=== PATIENT | female | born 2000 | race Caucasian/White ===

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

== ENCOUNTER 2023-10-09 19:55 | Emergency (ER) | payer BC, SELFPAY ==
[2023-10-09 20:00] VITALS: BP 133/66; PULSE 72; RESP 20; TEMP 36.9; O2SAT 98
--- NOTE | 2023-10-09 20:01 | ED.URI ---
HPI - URI/Sore Throat General Chief Complaint: Upper Respiratory Infection Stated Complaint: bronchitis symptoms Time Seen by Provider: 10/09/23 19:58 Source: patient, RN notes reviewed and old records reviewed Mode of arrival: ambulatory Limitations: no limitations History of Present Illness HPI Narrative: 23 year old female who presents to [facility] care with complaints of cough and some sinus congestion and feels stuffed up for the past 3 days. Patient reports that she just returned from vacation in [place]. Patient reports that she has used cough drops and Robitussin cough syrup without relief. Patient denies any fevers, shortness of breath or any sore throat. Patient reports that she is concerned for Bronchitis which she has had in past. MD elicited complaint: cough, rhinorrhea and nasal congestion Pertinent past history: other (bronchitis,) Onset (ago): day(s) (3) Severity: moderate Able to tolerate fluids by mouth: Yes Treatments prior to arrival: other (Robittusin and cough drops) Related Data Allergies Allergy/AdvReac Type Severity Reaction Status Date / Time No Known Allergies Allergy Unverified 10/09/23 20:08 Review of Systems Review of Systems: CONSTITUTIONAL: Denies malaise, chills, sweats, or fever. EYES: Denies visual changes, redness, or discharge. ENT: Reports rhinorrhea, congestion, no sinus pain, no otalgia and no sore throat. CARDIOVASCULAR: Denies chest pain, palpitations, or edema. RESPIRATORY: Reports cough.? Denies dyspnea. GASTROINTESTINAL: Denies abdominal pain, nausea, vomiting, diarrhea SKIN: Denies rash or itching. MUSCULOSKELETAL: Denies myalgia. NEUROLOGIC: Denies headache. All systems reviewed & are unremarkable except as noted in HPI and below PMFSH Past Medical History Medical History (Updated 10/10/23 @ 21:17 by Rachael Rodriguez NP) Broken collarbone Bronchitis Surgical History Surgical History (Updated 10/10/23 @ 21:10 by Rachael Rodriguez NP) History of tonsillectomy Social History Social History (Updated 10/10/23 @ 21:10 by Rachael Rodriguez NP) Smoking status: Never smoker Alcohol intake: current Alcohol use details: social Substance use type: does not use Living arrangements: with family Occupation/Education: student Gender identity (if verbalized by the patient): Female Comments At time of signature, agree with nursing past medical, surgical, social and family history. There is no relevant family history pertinent to the presenting complaint Exam Narrative: GENERAL: Well-appearing, well-nourished, and in no acute distress. HEAD: Normocephalic EYES: PERRLA, conjunctivae clear ENT: Nares clear, turbinates edematous and erythematous, clear discharge. Mucous membranes moist. TM pearly castanon with dull light reflex bilaterally; no tragal tenderness. Oropharynx erythematous without lesions. Tonsils not present and throat without exudate, no drooling, no hoarseness, no trismus, uvula midline.post nasal drainage NECK: Supple. No lymphadenopathy CHEST: Clear to auscultation, breath sounds equal. No wheezing, rhonchi, rales, or stridor. No respiratory distress, speaks in full sentences.cough SAO2 98% on room air HEART: Regular rate and rhythm. No murmur heard. SKIN: Warm, dry, no rash. NEURO: Alert and oriented x3. PSYCH: Normal mood and affect Course Course Emergency Course: Patient is aware of diagnosis, understands and agrees to treatment plan.? Anticipatory guidance given.? Patient agrees to follow-up as directed and is aware of reasons to seek care at the emergency department. Portions of this record may have been created with voice recognition software Level of Care: Express Care Visit Vital Signs Vital signs: Vital Signs Temperature 36.9 C 10/09/23 20:00 Pulse Rate 72 10/09/23 20:00 Respiratory Rate 20 10/09/23 20:00 Blood Pressure 133/66 10/09/23 20:00 Pulse Oximetry 98 10/09/23 20:00
== END 2023-10-09 20:20 | disposition home or self-care (01) ==
PROVIDERS: Emergency Provider Registered Nurse; PCP Internal Medicine
DX: J06.9 Acute upper respiratory infection, unspecified (principal); R05.1 Acute cough
CPT/HCPCS: 99213; G0463

== ENCOUNTER 2025-01-13 12:12 | Emergency (ER) | payer BC, SELFPAY ==
--- OUTSIDE RECORDS SUMMARY | 2025-01-13 12:15 | XMS_ITS | Referral Summary ---
Author Organization [facility] [address] Address [address] [place] [address] Phone Care Team Providers Care Land Management Supervisor Name Role Phone Jayesh Cabrera MD Primary Care Provider + Allergies No known active allergies Medications AVIANE 0.1-20 mg-mcg per tablet TK 1 T PO D 2 04/18/2017 Active fluticasone propionate (FLOVENT HFA) 110 mcg/actuation inhaler Inhale 1 puff 2 (two) times a day Rinse mouth with water after use. Do not swallow. 1 Inhaler 11/28/2018 Active albuterol HFA (PROVENTIL HFA,VENTOLIN HFA,PROAIR HFA) 90 mcg/actuation inhaler Inhale 2 puffs every 4-6 hours as needed 1 Inhaler 6 06/03/2020 Active methocarbamoL (ROBAXIN) 500 mg tablet Take 1 tablet (500 mg total) by mouth 2 (two) times a day 20 tablet 11/17/2023 Active lidocaine (LIDODERM) 5 % Place 1 patch on the skin daily for 14 days Remove & discard patch within 12 hours or as directed by . 14 patch 11/17/2023 Active Active Problems Problem Noted Date Diagnosed Date Acute otitis media 08/14/2019 Overview (08/14/2019): 1-14-20 ROM amox Asthma 07/05/2017 Overview (08/14/2019): Has been on Flovent 110 and has been on Singulair. Triggers are viral URIs and seasons. Now just rescue inhaler prn. 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 06/14/2017 Oral contraceptive use 06/14/2017 Overview (07/05/2017): for periods Immunizations Immunization Administration Dates Next Due DTaP, Unspecified 06/02/2006, 4,2002,10/01,2002 HPV, Unspecified 01/18/2017 HPV9 08/30/2018,04/24/2018 Hep A, Pediatric 04/24/2018 Hep A, Unspecified 01/18/2017 Hep B, Unspecified 2002,2002, 002 HiB 09/11/2003, 3,2002,05/31 Hib (HbOC) 2002 IPV 06/02/2006, 6,2002,07/31 Influenza, Quadrivalent, Spl it, Preservative Free, Intramuscular 05/23/2019,06/20/2018 Influenza, Trivalent, Preser vative Free, Intramuscular 07/13/2017 Influenza, Unspecified 06/13/2016,2014,06/08/2014,05/17,06/02/2006 MMR 07/05/2017,09/11/2003 Meningococcal ACWY, Unspecified 01/18/2017 Meningococcal MCV4P (Menactra) 08/30/2018 Pneumococcal Conjugate, Unspecified 06/03/2003,0 03/06/2003 Tdap 03/14/2014 Varicella 05/09/2014,06/03/2003 Social History Tobacco Use Types Packs/Day Years Used Date Smoking Tobacco: Never Assessed Personal Safety Answer Date Recorded Have you ever been in or are you currently in a harmful physical or emotional relationship or is someone making you feel afraid or unsafe? Denies 09/28/2024 Comments Unknown Sex and Gender Information Value Date Recorded Sex Assigned at Not on file Legal Sex Female 9:00 PM [employer] Gender Identity Not on file Sexual Orientation Not on file Last Filed Vital Signs Vital Sign Reading Time Taken Comments Blood Pressure 109/73 09/28/2024 11:30 AM HYDRAULIC MINER Pulse 51 09/28/2024 11:30 AM HYDRAULIC MINER Temperature 36.9 C (98.4 F) 09/28/2024 6:04 AM HYDRAULIC MINER Respiratory Rate 16 09/28/2024 5:55 AM HYDRAULIC MINER Oxygen Saturation 94% 09/28/2024 11: 30 AM HYDRAULIC MINER Inhaled Oxygen Concentration - - Weight 70.3 kg (154 lb 15.7 oz) 09/28/2024 5:55 AM HYDRAULIC MINER Height 162.6 cm (5' 4) 09/28/2024 5:38 AM HYDRAULIC MINER Body Mass Index 26.6 09/28/2024 5:38 AM HYDRAULIC MINER Plan of Treatment Not on file Insurance [place] [facility] CHOICE PRF PPO [place] Care Teams Land Management Supervisor Relationship Specialty Start Date End Date Jayesh Cabrera MD PCP - General Internal Medicine 11/17/23
--- OUTSIDE RECORDS SUMMARY | 2025-01-13 12:15 | XMS_ITS | Clinical Summary ---
Author Organization [facility] Address [address] [place] [address] Care Team Providers Care Flat Drier Name Role Phone Jayesh Cabrera MD Primary Care Provider [phone] Allergies No known active allergies Medications Symbicort 160-4.5 mcg/actuation HFA Aerosol Inhaler INHALE 2 PUFFS BY MOUTH TWICE DAILY. RINSE MOUTH AFTER USE 12/19/19 22 Active albuterol sulfate 90 mcg/Actuation inhaler INHALE 2 PUFFS BY MOUTH EVERY 4 TO 6 HOURS NEEDED 8.5 Gram 04/06/20 22 Active levonorgestreL (Kyleena) 17.5 mcg/24 hrs (5 yrs) 19.5 mg IUD Kyleena 19.5 MG Intrauterine Intrauterine device QTY: 0 Days: 0 Refills: 0 Written: 09/23/22 Patient Instructions: 09/23/19 23 Active ibuprofen (MOTRIN) 600 mg tablet Take 600 mg by mouth every 6 hours as needed for Pain, Mild. Active levothyroxine 75 mcg tablet TAKE 1 TABLET(75 MCG) BY MOUTH DAILY IN THE MORNING 90 Tablet 1 07/05/20 24 Active tirzepatide, weight loss, (Zepbound) 10 mg/0.5 mL Pen Injector Inject by subcutaneous injection. Active HYDROcodone-aceta minophen (NORCO) 5-325 mg tabletIndications :Calculus of gallbladder without cholecystitis without obstruction Take 1 Tablet by mouth every 6 hours as needed for Pain. Max Daily Amount: 4 Tablets 10 Tablet 10/27/19 25 Active HYDROcodone-aceta minophen (NORCO) 5-325 mg tabletIndications :Gallstones Take 1 Tablet by mouth every 4 hours as needed for Pain. Max Daily Amount: 6 Tablets 8 Tablet 11/10/2024 1:18 PM CDT 11/11/19 25 Active polyethylene glycol (MIRALAX) 17 gram Powder in Packet Take by mouth daily. Active Active Problems Patient Care Coordination No te Formatting of this note migh t be different from the original. Prev 09/02/23 Problem Noted Date Diagnosed Date Other asthma 12/29/2021 Allergic sinusitis 02/04/2021 Encounters Date Type Department Care Team Description 12/25/2024 External Device Data [facility] ABSTRACTION Provider, Abstract 11/27/2024 External Device Data [facility] ABSTRACTION Provider, Abstract 11/27/2024 External Device Data [facility]STRACTION Provider, Abstract 11/27/2024 External Device Data [facility]STRACTION Provider, Abstract 11/20/2024 11:45 AM CDT Office Visit [facility] [place] [id number] [facility] [address] [place] [id number] Wallace Sellers MD Gallstones (Primary Dx) 11/10/2024 9:56 AM CDT Anesthesia Event [facility] Operating Room [address] [place] [address] Jaren Quintanilla MD Bai, Kevin, MD 11/10/2024 9:29 AM CDT - 11/10/2024 10:42 AM CDT Surgery [facility] Operating Room [address] [place] [address] Wallace Sellers MD CHOLECYSTECTOMY LAPAROSCOPIC 11/10/2024 7:18 AM CDT - 11/10/2024 1:02 PM CDT Hospital Encounter [facility] [address] [place] [address] Wallace Sellers MD Gallstones Discharge Disposition: Home or Self Care 11/05/2024 Telephone [facility] [place] [id number] [facility] [address] [place] [address] Wallace Sellers MD Surgery 11/05/2024 Telephone [facility] [place] [id number] [place] [address] Wallace Sellers MD Surgery 11/02/2024 Telephone [facility] [place] [id number] [facility] [address] [place] [address] Wallace Sellers MD Surgery 10/30/2024 External Device Data [facility] ABSTRACTION Provider, Abstract 10/30/2024 External Device Data [facility]STRA[facility] Provider, Abstract 10/30/2024 External Device Data [facility] [place] Provider, Abstract 10/26/2024 2:42 AM CDT - 10/26/2024 5:33 AM CDT Emergency [facility] Emergency Department [address] [place] [phone] Carlos Schroeder DO Calculus of gallbladder without cholecystitis without obstruction (Primary Dx) Discharge Disposition: Home or Self Care 10/26/2024 Abstract [facility] Primary Care [facility] [address] [place] [phone] Jayesh Cabrera MD 10/26/2024 Travel from Last 3 Months Immunizations Immunization Administration Dates Next Due (ADACEL/BOOSTRIX)(10 YR UP) TDAP VACCINE, 0.5ML, IM 03/02/2024,03/14/2014 (GARDASIL 9)(9-45 YRS) HUMAN PAPILLOMAVIRUS VACCINE, TYPES 6, 11, 16, 18, 31, 33, 45, 52, 58, NONAVALENT (9VHPV), 2 OR 3 DOSE, IM 08/30/2018,04/24/2018 (GARDASIL)(9-45 YRS) HUMAN PAPILLOMAVIRUS VACCINE, TYPES 6, 11, 16, 18, QUADRIVALENT (4VHPV), 3 DOSE, IM 01/18/2017 (HAVRIX/VAQTA)(12 MO-18 YRS) HEPATITIS A VACCINE 0.5 ML PED/ADOL 2 DOSE, IM 04/24/2018 (INFANRIX)(6 WKS-6 YRS) DIPT HERIA, TETANUS TOXOIDS, AND ACCELLULAR PERTUSSIS VACCINE (DTAP), 0.5 ML IM 06/02/2006,12/09/2003,2002,10/01,2002 (IPOL)(6 WKS AND UP) POLIOVI TIFFANIE VACCINE, INACTIVATED (IPV), 3 DOSE, SUBCUT OR IM 06/02/2006,12/08/2005,2002,07/31 (M-M-R II/PRIORIX)(12 MO UP) MEASLES, MUMPS AND RUBELLA VIRUS VACCINE, 0.5 ML IM/SUBCUT 07/05/2017,09/11/2003 (PREVNAR 20)(6 WKS UP) PNEUM OCOCCAL CONJUGATE VACCINE 20-VALENT (PCV20), POLYSACCHARIDE [id number] CONJUGATE, ADJUVANT 0.5 ML (PF) IM 12/28/2022 (VARIVAX)(12 MOS UP)VARICELL A VIRUS VACCINE (PF) 0.5 ML, SUB CUT 05/09/2014,06/03/2003 HIB, Unspecified Formulation 09/11/2003, 2002,2002,05/31 HPV, Unspecified Formulation 01/18/2017 Hemophilus influenza b vacci ne (Hib), HbOC conjugate (4 dose schedule), for intramuscular use 2002 Hepatitis A Vaccine 01/18/2017 Hepatitis A Vaccine, Unspeci fied Formulation 01/18/2017 Hepatitis B Vaccine 2002,2002,2001 Hepatitis B Vaccine, Unspeci fied Formulation 2002,2002 INFLUENZA VACCINE QUADRIVALE NT 6 MOS UP PF IM 05/23/2019,06/20/2018 Influenza Seasonal Unspecifi ed Formulation IM 06/13/2016,06/10/2015,06/08/2014,05/17,06/02/2006 Influenza Vaccine Tri Split 4+ Pf Im 07/13/2017 Influenza, Unspecified Formulation 06/13/2016,,06/08/2014 Meningococcal ACWY Vaccine, Unspecified Formulation 01/18/2017 Meningococcal Polysaccharide Vaccine SQ 08/30/2018 Pneumococcal conjugate, unsp ecified formulation 06/03/2003,03/06/2003 Family History Relation Name Status Comments Brother Alive Father Alive Maternal Grandfather Alive Maternal Grandmother Alive Mother Alive Paternal Grandfather Alive Paternal Grandmother Alive Sister Alive Social History Tobacco Use Types Packs/Day Years Used Date Smoking Tobacco: Never Passive Smoke Exposure: Never Smokeless Tobacco: Never Tobacco Cessation:Counseling Given: No Alcohol Use Standard Drinks/Week Comments Yes 1 (1 standard drink = 0.6 oz pur e alcohol) Feeling Safe Answer Date Recorded Are you in a relationship wi th someone who hurts you emotionally and/or physically? No 11/10/2024 Food Insecurity Answer Date Recorded Patient needs follow up regardin 11/27/2024 Transportation Needs Answer Date Record ed Patient needs follow up regardin 11/27/2024 Housing Stability Answer Date Recorded Social/Environmental Concerns No concerns Utility Needs Answer Date Recorded Patient needs follow up regardin 11/27/2024 Comments No Sex and Gender Information Value Date Recorded Sex Assigned at Not on file Legal Sex Female 2:36 PM CDT Gender Identity Not on file Sexual Orientation Not on file Last Filed Vital Signs Vital Sign Reading Time Taken Comments Blood Pressure 106/57 11/10/2024 12:43 PM CDT Pulse 52 11/10/2024 12:43 PM CDT Temperature 36.7 C (98 F) 11/10/2024 12:43 PM CDT Respiratory Rate 18 11/10/2024 12:43 PM CDT Oxygen Saturation 98% 11/10/2024 12:43 PM CDT Inhaled Oxygen Concentration - - Weight 68 kg (150 lb) 11/10/2024 7:34 AM CDT Height 157.5 cm (5' 2) 11/10/2024 7:34 AM CDT Body Mass Index 27.44 11/10/2024 7:34 AM CDT Plan of Treatment Upcoming Encounters Date Type Department Care Team (Late st Contact Info) Description 04/18/2025 10:20 AM CDT Office Visit [facility] [id number] [place] [address] Jayesh Cabrera MD [address] [place] [address] [address] [place] [address] Health Maintenance Due Date Last Done Comments CHLAMYDIA SCREENING (ANNUAL) 06-24 YEARS 2013 HPV/Cotest (21-29) 2023 INFLUENZA VACCINE (#1) 2024 9, 06/20/2018, 07/13/2017, Additional history exists Preventative Visit- Commercial 08/01/2024 0 09/02/2023, 12/28/2022, 12/29/2021, Additional history exists CERVICAL CANCER SCREENING 07/08/2025 PAP SMEAR 07/08/2025 07/08/2022 (Prev iously completed) DTAP/TDAP/TD VACCINES (8 - T d or Tdap) 03/02/2034 03/02/2024, 03/14/2014, 06/02/2006, Additional history exists HEPATITIS B VACCINES Completed 2002, 2002, 2002, Additional history exists HPV VACCINES Completed 08/30/2018, 04/02, 01/18/2017, Additional history exists Medical Devices Implanted Type Area Parliamentary Counsel Device Identifier Shelf Expiration Date Model / Serial / Lot Electric Melt Operator Ligaclip Endo Rotate Multi Clip 10mm [id number] - [id number] Implanted:Qty : 1 on 11/10/2024 by Wallace Sellers MD at [facility] Clip N/A: Abdomen [employer] [id number] 08/31/2029 ER320 / / [id number] Procedures Procedure Name Priority Date/Time Associated Diagnosis Comments PATHOLOGY Pathology 11/10/2024 10:29 AM CDT Gallstones [place] ANES INSERT ENDOTRACHEAL AIRWAY Routine 11/10/2024 10:15 AM CDT [place] LAPAROSCOPY SURG CHOLECYSTECTOMY 11/10/2024 9:29 AM CDT Gallstones POC , URINE Routine 11/10/2024 7:[address] ABDOMEN PELVIS W CONTRAST Stat 10/26/2024 4:10 AM CDT POC CREATININE Stat 10/26/2024 3:25 AM CDT LIPASE Stat 10/26/2024 3:14 AM CDT COMPREHENSIVE METABOLIC PANEL Stat 10/26/2024 3:14 AM CDT CBC WITH DIFFERENTIAL Stat 10/26/2024 3:14 AM CDT POC , URINE Stat 10/26/2024 2:55 AM CDT URINALYSIS W/REFLEX MICROSCOPIC Stat 10/26/2024 2:53 AM CDT from Last 3 Months Results * PATHOLOGY (11/10/2024 10:29 AM CDT) CASE REPORT Surgical Pathology Report Case: [id number] Authorizing Provider: Wallace Sellers MD Collected: 11/10/2024 10:29 AM Ordering Location: [facility] Received: 11/12/2024 07:05 AM Operating Room Pathologist: Gregorio Mendoza MD Specimen: Gallbladder, GALLBLADDER 4:52 PM CDT [facility] FINAL DIAGNOSIS Gallbladder, laparoscopic cholecystectomy: - Cholelithiasis. - Gallbladder with chronic inflammation. - Cholesterolosis. 4:52 PM CDT [facility] at 1652 CDT GROSS DESCRIPTION Received in a single container labeled Estephania Castano and gallbladder, is a 5 x 2.5 x 1.8 cm gallbladder with a clamped, patent cystic duct has a diameter of 0.1 cm and is inked blue. The serosal surface is masterson-pink and smooth. The lumen contains a small amount of masterson, translucent, thick bile and multiple ovoid, yellow-orange, nodular stones that are 0.1 to 0.4 cm in greatest dimension. The mucosa is pale masterson-pink, velvety, and covered with yellow flecks. Sectioning reveals a wall thickness of 0.1 to 0.2 cm and has edema. Hand Bander sections are submitted in cassette A1, including the en face cystic duct margin. [facility] 4:52 PM CDT [facility] MICROSCOPIC DESCRIPTION The slides are labeled [id number] and Estephania Castano. Microscopic findings substantiate the above diagnosis. 5 4:52 PM CDT [facility] OPERATIVE PROCEDURE 1: CHOLECYSTECTOMY LAPAROSCOPIC 5 4:52 PM CDT [facility] CLINICAL INFORMATION Gallstones [K80.20] 5 4:52 PM T [facility] COMMENT Special stain, immunohistochemical, and/or in situ hybridization results are interpreted with controls that demonstrate appropriate staining reactions. Note on use of immunohistochemistry reagents and in situ hybridization probes: These tests were developed and their performance characteristics determined by [facility] Department of Laboratory Medicine. It has not been cleared or approved by the U.S. Food and Drug Administration. The FDA has determined that such clearance or approval is not necessary. The test is used for clinical purposes. It should not be regarded as investigational or for research. This laboratory is certified to perform high complexity testing. Frozen section/operating room consultation, gross examination and dissection, and case sign out may have been performed in part or completely in the following laboratories: [facility], [place] #[id number] [address] [place] [address] [facility], [place] #[id number] [address] [place] [address] [facility]/[place], [place] #[id number] [address] [place] [address] This report was created with the Mi[employer] voice-activated dictation system. Inherent to this system is the possibility of syntax, grammar, punctuation and other errors that could impact the interpretation of the report. If there are interpretative questions about aspects of this report, please contact the performing pathologist. 5 4:52 PM T [facility] Tissue ENTIRE GALLBLADDER / Unknown Collection / Unknown 11/10/2024 10:29 AM CDT 11/12/2024 7:05 AM CDT Wallace Sellers MD PATHOLOGY/CYTOLOGY ORDERABLES Fi nal Result [facility] CLIA# [id number] [address] [place] [place] [address] * [place] ANES INSERT ENDOTRACHEAL AIRWAY (11/10/2024 10:15 AM CDT) Narrative Rafi Bauman AA-C - 11/10/2024 10:15 AM CDT Rafi Bauman AA-C 11/10/2024 10:16 AM Airway Date/Time: 11/10/2024 10:15 AM Location: OR Plan: routine intubation Patient Identity Confirmed by: Verbally with patient and armband Staffing Performed: [employer] SALESPERSON/CAA Authorized by: Jaren Quintanilla MD Performed by: Rafi Bauman AA-C Indications and Patient Condition: Indications for Airway Management: Anesthesia Sedation Level: general anesthesia Preoxygenated: yes Patient Position: Sniffing Mask Difficulty Assessment: 0 - not attempted Plan to extubate at end of case: Yes Final Airway Details: Final Airway Type: Endotracheal airway ETT Cuffed: Yes Cuff Volume (mL): 5 Technique Used for Successful ETT Placement: Direct laryngoscopy Blade Type: straight blade Blade Size: 2 Insertion Site: Oral ETT Size (mm): 7.0 Measured from: Teeth ETT to Teeth (cm): 21 Tube secured with: Tape Placement Verified by: auscultation, end tidal CO2 and chest rise Cormack-Lehane Classification: Grade I - full view of glottis Number of Attempts at Approach: 1 Additional Procedure Information: atraumatic Jaren Quintanilla MD PROCEDURE/MINOR SURGICAL ORDER BONNY Final Result * POC , URINE (11/10/2024 7:48 AM CDT) Only the most recent of2 resultswithin the time period is included. HCG QUAL URINE Negative Negative 11/10/2024 7:48 AM CDT [facility] Urine 11/10/2024 7:48 AM CDT 11/10/2024 7:54 AM CDT Narrative [facility] - 11/10/2024 7:48 AM CDT Positive : Result is greater than or equal to 25 mIU/mL Negative: Result is less than 25 mIU/mL Invalid: Result is borderline or indeterminate,send to lab for serum test methodology. Wallace Sellers MD POINT OF CARE TESTING Final Resu lt [facility]# [id number] [address] [facility] [address] * CT ABDOMEN PELVIS W CONTRAST (10/26/2024 4:10 AM CDT) Anatomical Region Laterality Modality Abdomen Computed Tomogra phy 10/26/2024 4:10 AM CDT Impressions 10/26/2024 4:19 AM CDT IMPRESSION: 1. Tiny gallstones. Trace intrahepatic biliary dilatation but no significant gallbladder distention. 2. IUD is present. The right limb of the device appears deeper in the myometrium in anticipated. Malposition is not entirely excludable. DICTATION LOCATION: Location 4 Narrative 10/26/2024 4:[address] ABDOMEN PELVIS W CONTRAST EXAM DATE: 10/26/2024 4:10 AM TECHNIQUE: Axial computed tomography of abdomen and pelvis with 100 cc Isovue-300 IV contrast . Coronal and sagittal reformats were obtained. The examination was performed with the adjustment of mA according to the patient size and/or use of iterative reconstruction technique. INDICATION: Abdominal pain, acute, nonlocalized. History of gallbladder disease. Right upper quadrant pain COMPARISON: None FINDINGS: Lung bases are clear No free air. No ascites. No abnormal bowel distention or evidence of bowel obstruction. No focal bowel wall edema. Appendix is normal. Spleen, adrenal glands, pancreas within normal limits. Gallbladder is not significantly dilated and shows no significant wall edema. There are tiny gallstones. There may be trace intrahepatic biliary dilatation. Nephrograms are normal and symmetric. No hydronephrosis. No obstructing ureterolithiasis. No significant bladder wall thickening. No pathologic adenopathy. Abdominal aorta is nonaneurysmal. IUD is present. The right limb of the device appears deeper in the myometrium than expected. No concerning adnexal mass. No suspicious osseous lesion. Umbilical piercing is present Procedure Note Yoana Hernandez MD - 10/26/2024 CT ABDOMEN PELVIS W CONTRAST EXAM DATE: 10/26/2024 4:10 AM TECHNIQUE: Axial computed tomography of abdomen and pelvis with 100 cc Isovue-300 IV contrast . Coronal and sagittal reformats were obtained. The examination was performed with the adjustment of mA according to the patient size and/or use of iterative reconstruction technique. INDICATION: Abdominal pain, acute, nonlocalized. History of gallbladder disease. Right upper quadrant pain COMPARISON: None FINDINGS: Lung bases are clear No free air. No ascites. No abnormal bowel distention or evidence of bowel obstruction. No focal bowel wall edema. Appendix is normal. Spleen, adrenal glands, pancreas within normal limits. Gallbladder is not significantly dilated and shows no significant wall edema. There are tiny gallstones. There may be trace intrahepatic biliary dilatation. Nephrograms are normal and symmetric. No hydronephrosis. No obstructing ureterolithiasis. No significant bladder wall thickening. No pathologic adenopathy. Abdominal aorta is nonaneurysmal. IUD is present. The right limb of the device appears deeper in the myometrium than expected. No concerning adnexal mass. No suspicious osseous lesion. Umbilical piercing is present IMPRESSION: 1. Tiny gallstones. Trace intrahepatic biliary dilatation but no significant gallbladder distention. 2. IUD is present. The right limb of the device appears deeper in the myometrium in anticipated. Malposition is not entirely excludable. DICTATION LOCATION: Location [address] ORDERABLES Final Result * POC CREATININE (10/26/2024 3:25 AM CDT) CREATININE POC 0.70 0.50 - 1.00 mg/dL 10/26/2024 3:25 AM CDT [facility] GFR POC >60 >=60 mL/min/1.7 3 sq meter 10/26/2024 3:25 AM CDT [facility] Comment:eGFR calculated with 2020 CKD-EPI equation. Vegetarian diet, extremely high or low muscle mass, and may affect results. Cystatin C with Glomerular Filtration Rate is a suitable alternative for these patients. Blood, whole 10/26/2024 3:25 AM CDT 10/26/2024 3:29 AM CDT Carlos Schroeder DO POINT OF CARE TESTING Final Re sult [facility] - [facility] CLIA# [id number] [address] [place] [address] * (ABNORMAL) CBC WITH DIFFERENTIAL (10/26/2024 3:14 AM CDT) [facility] WBC 13.0(H) 4.0 - 9.8 K/uL 10/26/2024 3:25 AM CDT [facility] RBC 3.98 3.90 - 4.90 M/uL 10/26/2024 3:25 AM CDT [facility] HEMOGLOBIN 13.1 11.8 - 14.8 g/dL 10/26/2024 3:25 AM CDT [facility] HEMATOCRIT 37.9 35.5 - 44.0 % 10/26/2024 3:25 AM CDT [facility] MCV 95.2 82.0 - 99.0 fL 10/26/2024 3:25 AM CDT [facility] MCH 32.9(H) 27.2 - 32.6 pg 10/26/2024 3:25 AM CDT [facility] MCHC 34.6 31.5 - 35.5 g/dL 10/26/2024 3:25 AM CDT [facility] RDW 13.0 11.5 - 14.5 % 10/26/2024 3:25 AM CDT [facility] RDW-STDEV 44.8 37.1 - 48.7 fL 10/26/2024 3:25 AM CDT [facility] - . [facility] PLATELETS 337 140 - 350 K/uL 10/26/2024 3:25 AM CDT [facility] - . [facility] MPV 10.1 9.3 - 12.4 fL 10/26/2024 3:25 AM CDT [facility] NEUTROPHILS 68 % 10/26/2024 3:25 AM CDT [facility] - . [facility] LYMPHOCYTES 23 % 10/26/2024 3:25 AM CDT [facility] - [facility] MONOCYTES 6 % 10/26/2024 3:25 AM CDT [facility] - [facility] EOSINOPHILS 3 % 10/26/2024 3:25 AM CDT [facility] - . [facility] BASOPHILS 1 % 10/26/2024 3:25 AM CDT [facility] - . [facility] IMMATURE GRANULOCYTES 0 % 10/26/2024 3:25 AM CDT [facility] - . [facility] NEUTROPHIL ABSOLUTE 8.80(H) 1.90 - 7.00 K/uL 10/26/2024 3:25 AM CDT [facility] - . [facility] LYMPHOCYTE ABSOLUTE 3.01 0.70 - 4.50 K/uL 10/26/2024 3:25 AM CDT [facility] - . [facility] MONOCYTE ABSOLUTE 0.79 0.10 - 1.30 K/uL 10/26/2024 3:25 AM CDT [facility] - . [facility] EOSINOPHIL ABSOLUTE 0.33 0.00 - 0.70 K/uL 10/26/2024 3:25 AM CDT [facility] - [facility] BASOPHILS ABSOLUTE 0.07 0.00 - 0.20 K/uL 10/26/2024 3:25 AM CDT [facility] - . [facility] IMMATURE GRANULOCYTES ABSOLUTE 0.04(H) 0.00 - 0.03 K/uL 10/26/2024 3:25 AM CDT [facility] - [facility] Blood Venipuncture / Unknown 10/26/2024 3:14 AM CDT 10/26/2024 3:18 AM CDT us Carlos Schroeder DO HEMATOLOGY ORDERABLES Final Re sult [facility] CLIA# [id number] [address] [address] * LIPASE (10/26/2024 3:14 AM CDT) LIPASE 42 13 - 60 U/L 10/26/2024 3:58 AM CDT [facility] Blood Venipuncture / Unknown 10/26/2024 3:14 AM CDT 10/26/2024 3:18 AM CDT us Carlos Schroeder DO CHEMISTRY ORDERABLES Final Res ult [facility] CLIA# [id number] [address] [place] [address] * (ABNORMAL) COMPREHENSIVE METABOLIC PANEL (10/26/2024 3:14 AM CDT) Pathologist [facility] SODIUM 140 136 - 145 mmol/L 10/26/2024 3:59 AM T [facility] POTASSIUM 4.4 3.5 - 5.0 mmol/L 10/26/2024 3:59 AM T [facility] Comment:Moderate hemolysis p resent. Can cause significant falsely elevated result. Redraw if indicated. CHLORIDE 103 98 - 107 mmol/L 10/26/2024 3:59 AM CDT [facility]. [facility] CO2 25 22 - 29 mmol/L 10/26/2024 3:59 AM T [facility]. [facility] CALCIUM 9.7 8.6 - 10.2 mg/dL 10/26/2024 3:59 AM CDT [facility] - . [facility] BUN 9 6 - 20 mg/dL 10/26/2024 3:59 AM T [facility] - . [facility] CREATININE 0.64 0.51 - 0.95 mg/dL 10/26/2024 3:59 AM CDT [facility] - . [facility] GLUCOSE 92 74 - 99 mg/dL 10/26/2024 3:59 AM T [facility] - . [facility] TOTAL PROTEIN 7.6 6.7 - 8.6 g/dL 10/26/2024 3:59 AM T [facility] - . [facility] ALBUMIN 4.5 3.5 - 5.2 g/dL 10/26/2024 3:59 AM CDT [facility] BILIRUBIN TOTAL 0.5 0.3 - 1.2 mg/dL 10/26/2024 3:59 AM T [facility] ALKALINE PHOSPHATASE 96 35 - 104 U/L 10/26/2024 3:59 AM CDT [facility] AST 10/26/2024 3:59 AM T [facility] Comment:Test cannot be perfo rmed. Sample hemolysis interference above limits. Redraw if indicated. ALT 77(H) <34 U/L 10/26/2024 3:59 AM T [facility] Comment:Hemolysis present. R esult may be falsely elevated. GFR >60 >=60 mL/min/1.7 3 sq meter 10/26/2024 3:59 AM T [facility] Comment:eGFR calculated with 2020 CKD-EPI equation. Vegetarian diet, extremely high or low muscle mass, and may affect results. Cystatin C with Glomerular Filtration Rate is a suitable alternative for these patients. ANION GAP 12 8 - 16 mmol/L 10/26/2024 3:59 AM T [facility] Blood Venipuncture / Unknown 10/26/2024 3:14 AM CDT 10/26/2024 3:18 AM CDT Narrative [facility] - 10/26/2024 3:59 AM CDT Samples containing indocyanine green cause interferences on Total and/or Direct Bilirubin and must not be measured. Carlos Schroeder DO CHEMISTRY ORDERABLES Final Res ult [facility] CLIA# [id number] [address] [place] [id number] * (ABNORMAL) URINALYSIS WITH REFLEX MICROSCOPIC (10/26/2024 2:53 AM CDT) COLOR UA Pale Yellow Pale to Dark Yellow 10/26/2024 3:29 AM T [facility] CLARITY UA Clear Clear 10/26/2024 3:29 AM CDT [facility] - [facility] SPECIFIC GRAVITY UA 1.005 1.003 - 1.035 10/26/2024 3:29 AM T [employer] [facility] - [facility] PH UA 7.0 5.0 - 8.0 10/26/2024 3:29 AM T [facility] LEUKOCYTE ESTERASE UA Negative Negative 10/26/2024 3:29 AM T [facility] - . DEEPTI NITRITE UA Negative Negative 10/26/2024 3:29 AM T [facility] PROTEIN UA Negative Negative 10/26/2024 3:29 AM CDT [facility] - [facility] GLUCOSE UA Negative Negative 10/26/2024 3:29 AM T [employer] [facility] - [facility] KETONES UA Negative Negative 10/26/2024 3:29 AM T [facility] UROBILINOGEN UA Normal <2.0 mg/dL 3:29 AM T [employer] [facility] - [facility] BILIRUBIN UA Negative Negative 10/26/2024 3:29 AM T [facility] - [facility] BLOOD UA 1+(A) Negative 10/26/2024 3:29 AM T [employer] [facility] - . [facility] WBC UA 0-2 0 - 2 /hpf 10/26/2024 3:29 AM CDT [facility] - . [facility] RBC UA 0-2 0 - 2 /hpf 10/26/2024 3:29 AM T [facility] BACTERIA UA Negative Negative /hpf 10/26/2024 3:29 AM T [facility] - [facility] EPITHELIAL CELLS, URINE 0-5 0 - 5 /hpf 10/26/2024 3:29 AM T [facility] - [facility] Urine URINE SPECIMEN OBTAINED BY CLEAN CATCH PROCEDURE / Unknown Collection / Unknown 10/26/2024 2:53 AM CDT 10/26/2024 3:14 AM CDT Carlos Schroeder DO URINE ORDERABLES Final Result [facility]# [id number] [address] [place] [address] from Last 3 Months Insurance [employer] [place] [address] [employer] Commercial Advance Directives For more information, please contact: [phone] * Full Code (Latest Code Status on File) Date Activated Date Inactivated Comments 11/10/2024 10:44 AM 11/10/2024 3:02 PM * Full Code Date Activated Date Inactivated Comments 11/10/2024 7:36 AM 11/10/2024 10:44 AM Care Teams Flat Drier Relationship Specialty Start Date End Date Jayesh Cabrera MD PCP - General Internal Medicine 01/28/21
--- OUTSIDE RECORDS SUMMARY | 2025-01-13 12:15 | XMS_ITS | Clinical Summary ---
Author Organization [facility] [address] Address [address] [place] [address] Phone Care Team Providers Care Features Editor Name Role Phone Jayesh Cabrera MD Primary [...] prn. 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 Oral contraceptive use 06/14/2017 [...] Unspecified 06/03/2003,0 03/06/2003 Tdap 03/14/2014 Varicella 05/09/2014,06/03/2003 Surgical History Surgery Date Site/Laterality Comments TONSILLECTOMY 08/01/2007 - 07/31/2008 Age 8 Medical History Medical History Date Comments 2002 7-9 product of n l preg & delivery Clavicle fracture 2007 Age 8 Family History Medical History Relation Name Comments Breast cancer Maternal Grandmother in 30' s Allergies Mother Cat, seasons Allergies Mother's Brother 1 Kamaljit to foods Throat cancer Mother's Brother 1 Kamaljit with no risk factors, in 40's Colon cancer Mother's Brother 2 Cristi in 40's Diabetes Other 1 Sudden Other 2 NONE Alzheimer's disease Other 3 Young pe ople, Dad's side Hypertension Other 4 Hyperlipidemia Other 5 Eczema Paternal Grandmother Relation Name Status Comments Maternal Grandmother Mother Mother's Brother 1 Kamajlit Mother's Brother 2 Cristi Other 1 Other 2 Other 3 Other 4 Other 5 Paternal Grandmother Social History Tobacco Use Types Packs/Day Years [...] on file Legal Sex 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 Gender Identity Not on file Sexual Orientation Not on file Obstetrics History Last Filed Vital Signs Vital Sign Reading Time Taken Comments Blood Pressure 109/73 09/28/2024 11:30 AM FREIGHT SEPARATOR Pulse 51 09/28/2024 11:30 AM FREIGHT SEPARATOR Temperature 36.9 C (98.4 F) 09/28/2024 6:04 AM FREIGHT SEPARATOR Respiratory Rate 16 09/28/2024 5:55 AM FREIGHT SEPARATOR Oxygen Saturation 94% 09/28/2024 11: 30 AM FREIGHT SEPARATOR Inhaled Oxygen Concentration - - Weight 70.3 kg (154 lb 15.7 oz) 09/28/2024 5:55 AM FREIGHT SEPARATOR Height 162.6 cm (5' 4) 09/28/2024 5:38 AM FREIGHT SEPARATOR Body Mass Index 26.6 09/28/2024 5:38 AM FREIGHT SEPARATOR Plan of Treatment Health Maintenance Due Date Last Done Comments Cervical Cancer Screening 2002 Depression Screening 2002 Hepatitis C Screening 2002 Pneumococcal vaccine <65 (1 of 1 - PPSV23) 2008 06/03/2003, 03/06/2003 Meningococcal B Vaccine (1 o f 2 - Standard) 2018 Regular Well Visit/Exam 18-64 2020 Influenza Vaccine (Season Ended) 2025 05/23/2019, 06/20/2018, 07/13/2017, Additional history exists DTaP/Tdap/Td Vaccine (8 - Td or Tdap) 03/02/2034 03/02/2024, 03/14/2014, 06/02/2006, Additional history exists Hepatitis B Screening Completed 2002 , 2002, 2002 Varicella Vaccines Completed 05/09/2014, 06/03/2003 HPV Vaccines Completed 08/30/2018, 04/02, 01/18/2017 Insurance [facility]ICE [facility] [place] [facility] BL CHOICE [place] P[place] Care Teams Features Editor Relationship Specialty Start Date End Date Jayesh Cabrera MD PCP - General Internal Medicine 11/17/23
--- OUTSIDE RECORDS SUMMARY | 2025-01-13 12:15 | XMS_ITS | Continuity of Care Document ---
Author Organization [facility] Address [address] [place] [address] [place] [phone] Phone Care Team Providers Care Life Support Technician Name Role Phone Mikal Chowdhury PT Unavailable [...] Activities Neuromuscular Re-Ed Manual Therapy Therapeutic Activities Therapeutic Exercise Neuromuscular Re-Ed Manual Therapy Therapeutic Activities Therapeutic Exercise Neuromuscular [...] Date Provider Providers Copied on Encounter [facility] [facility], [place], [place], [id number], [place] tel:[phone] [place] No Information Luciana Ren. . Referring Provider: Delmar Rasheed, [address] [place] [address], [place], [address]. tel:[phone] [place] [address], [place], [id number], tel:[phone] [place] No Information Liudmila Howard. . Referring Provider: Delmar Rasheed, [address] [place] [address], [place], [address]. tel:[phone] [place] [address], [address] [place] [address], [place], [id number], [place] tel:[phone] [place] No Information Hisky Mikal. . Referring Provider: Delmar Rasheed, [address] [place] [address], [place], [address]. tel:[phone] [place] [address], [place], [id number], [place] tel:[phone] [place] No Information Hisky Mikal. . Referring Provider: Delmar Rasheed, [address] [place] [address], [place], [address]. tel:[phone] [place] [address] [place] [address], [place], [id number], [place] tel:[phone] [place] No Information Hisky Mikal. . Referring Provider: Delmar Rasheed, [address] [place] [address], [place], [address]. tel:[phone] [place] [address] [place] [address], [place], [id number], [place] tel:[phone] [place] No Information Hisky Mikal. . Referring Provider: Delmar Rasheed, [address] [place] [address], [place], [address]. tel:[phone] [facility], [address] [place] [address], [place], [id number], [place] tel:[phone] [place] No Information Luciana Ren. . Referring Provider: Delmar Rasheed, [address] [place] [address], [place], [address]. tel:[phone] [place] [address], [id number], tel:[phone] [place] No Information Phi Miranda. . Referring Provider: Delmar Rasheed, [address] [place] [address], [place], [address]. tel:[phone], [id number], [place] tel:[phone] [place] No Information Luciana Ren. . Referring Provider: Delmar Rasheed, [address] [place] [address], [address]. tel:[phone] [place] [address], [id number], tel:[phone] [place] No Information Luciana Ren. . Referring Provider: Delmar Rasheed, [address] [place] [address], [address]. tel:[phone], [id number], tel:[phone] [place] No Information Camdne Eastman. [address] [place] [address], [address], [place], [facility], . tel:[phone] Referring Provider: Delmar Rasheed, [address] [place] [address], [address]. tel:[phone], [id number], tel:[phone] [place] No Information Luciana Ren. . Referring Provider: Delmar Rasheed [address] [place] [address], [address]. tel:[phone] [facility], [facility] [address], [place], [place], [id number], tel:[phone] [place] No Information Hisky Mikal. . Referring Provider: [address], [place], [address]. tel:[phone] [place] [address] [address], [place], [place], [id number], tel:[phone] [place] No Information Hisky Mikal. . Referring Provider: [address], [place], [address]. tel:[phone] [place] [address] [address], [place], [place], [id number], tel:[phone] [place] No Information Hisky Mikal. . Referring Provider: [address], [place], [address]. tel:[phone] [place] [address] [address] [facility] [place], [place], [id number], tel:[phone] [place] No Information Hisky Mikal. . Referring Provider: [address], [place], [address]. tel:[phone] [facility] [address], [place], [place], [id number], tel:[phone] [place] No Information Hisky Mikal. . Referring Provider: [address], [place], [address]. tel:[phone] [facility], [place], [place], [address], tel:[phone] [place] No Information Hisky Mikal. . Referring Provider: [address], [place], [address]. tel:[phone] [facility], [address] [facility] 300, [place], [place], [id number], tel:[phone] [place] No Information claudia Mikal. . Referring Provider: [address], [place], [address]. tel:[phone] Family History Family Member Type Diagnosis Age At Onset No Information Payers Payer name Insurance type Covered green party ID Authoriza tang(s) Lien-LOP LI 00 Social History Type [...]
--- OUTSIDE RECORDS SUMMARY | 2025-01-13 12:17 | XMS_ITS | Continuity of Care Document ---
Author Organization [facility] [place] Address [address] [place] [address] [place] [phone] Phone Care Team Providers Care Premium Note Interest Calculator Clerk Name Role Phone Mikal Chowdhury PT Unavailable [...] Date Provider Providers Copied on Encounter [facility] 300, [place], [place], [id number], [place] tel:[phone] [place] No Information Luciana Ren. . Referring Provider: Delmar Rasheed, [address] [place] [address], [place], [address]. tel:[phone] [place] [address], [place], [place], [id number], tel:[phone] [place] No Information Liudmila Howard. . Referring Provider: Delmar Rasheed, [address] [place] [address], [place], [address]. tel:[phone] [place] [address], [address] [place] [address], [place], [place], [id number], [place] tel:[phone] [place] No Information Hisky Mikal. . Referring Provider: Delmar Rasheed, [address] [place] [address], [place], [address]. tel:[phone] [place] [address], [place], [place], [id number], [place] tel:[phone] [place] No Information Hisky Mikal. . Referring Provider: Delmar Rasheed, [address] [place] [address], [place], [address]. tel:[phone] [place] [address] [place] [address], [place], [place], [id number], [place] tel:[phone] [place] No Information Hisky Mikal. . Referring Provider: Delmar Rasheed, [address] [place] [address], [place], [address]. tel:[phone] [place] [address] [place] [address], [place], [id number], [place] tel:[phone] [place] No Information Hisky Mikal. . Referring Provider: Delmar Rasheed, [address] [place] [address], [place], [address]. tel:[phone] [facility], [address] [place] [address], [place], [id number], [place] tel:[phone] [place] No Information Luciana Ren. . Referring Provider: Delmar Rasheed, [address] [place] [address], [place], [address]. tel:[phone] [place] [address], [id number], tel:[phone] [place] No Information Phi Miranda. . Referring Provider: Delmar Rasheed, [address] [place] [address], [place], [address]. tel:[phone], [id number], [place] tel:[phone] [place] No Information Luciana Ren. . Referring Provider: Delmar Rasheed, [address] [place] [address], [address]. tel:[phone] [place] [address], [id number], tel:[phone] [place] No Information Luciana Ren. . Referring Provider: Delmar Rasheed, [address] [place] [address], [address]. tel:[phone], [id number], tel:[phone] [place] No Information Camden Eastman. [address] [place] [address], [address], [place], [facility], . tel:[phone] Referring Provider: Delmar Rasheed, [address] [place] [address], [address]. tel:[phone], [id number], tel:[phone] [place] No Information Luciana Ren. . Referring Provider: Delmar Rasheed [address] [place] [address], [address]. tel:[phone] [facility], [facility] [address], [place], [place], [address], tel:[phone] [place] No Information Hisky Mikal. . Referring Provider: [address], [place], [address]. tel:[phone] [place] [address] [address], [place], [place], [id number], tel:[phone] [place] No Information Hisky Mikal. . Referring Provider: [address], [place], [address]. tel:[phone] [place] [address] [address], [place], [place], [address], tel:[phone] [place] No Information Hisky Mikal. . Referring Provider: [address], [place], [address]. tel:[phone] [place] [address] [facility], [place], [id number], tel:[phone] [place] No Information Hisky Mikal. . Referring Provider: [address], [place], [address]. tel:[phone] [facility] [address], [place], [place], [id number], tel:[phone] [place] No Information Hisky Mikal. . Referring Provider: [address], [place], [address]. tel:[phone] [facility], [place], [place], [id number], tel:[phone] [place] No Information Hisky Mikal. . Referring Provider: [address], [place], [address]. tel:[phone] [facility], [address] [facility] 300, [place], [place], [address], tel:[phone] [place] No Information claudia Mikal. . Referring Provider: [address], [place], [address]. tel:[phone] Family History Family Member Type Diagnosis Age At Onset No Information Payers Payer name Insurance type Covered republican ID Authoriza tang(s) Lien-LOP LI 00 Social [...]
[2025-01-13 12:18] VITALS: BP 127/83; PULSE 88; RESP 16; TEMP 36.6; O2SAT 100
--- NOTE | 2025-01-13 12:28 | ED.FEMALEGU ---
HPI - Female Genitourinary General Chief complaint: Urogenital-Female Stated complaint: uti Source: patient and RN notes reviewed Mode of arrival: ambulatory Limitations: no limitations History of Present Illness HPI Narrative: 24-year-old female presented for complaint of burning with urination, frequency, urgency and feeling that her bladder is not emptying fully. Onset today. Took AZO twice this morning.Denies hematuria, nausea, vomiting, abdominal pain, flank pain, constipation, diarrhea, fevers or chills. Denies concern for STD or . States she has been getting UTIs about every 4-6 months. Was last treated by Obgyn a few weeks ago, without UA. Related Data Home Medications ?Medication ?Instructions ?Recorded ?Confirmed ?Last Taken ?Type levothyroxine 75 mcg tablet mcg 08/26/24 Unknown History Allergies Allergy/AdvReac Type Severity Reaction Status Date / Time No Known Allergies Allergy Unverified 01/13/25 12:22 Review of Systems Review of Systems: CONSTITUTIONAL: Denies body aches, fever, chills, or sweats. CARDIOVASCULAR: Denies chest pain, palpitations, or edema. RESPIRATORY: Denies cough or dyspnea. GASTROINTESTINAL: Denies abdominal pain, nausea, vomiting, or diarrhea. GENITOURINARY: Reports dysuria, frequency, denies hematuria, flank pain, discharge SKIN: Denies rash, itching, or wounds. MUSCULOSKELETAL: Denies back pain or myalgia. [facility] Past Medical History Medical History Broken collarbone Bronchitis Surgical History Surgical History History of tonsillectomy Social History Social History Smoking status: Never smoker Alcohol intake: current Alcohol use details: social Substance use type: does not use Living arrangements: with family Occupation/Education: student Gender identity (if verbalized by the patient): Female Comments At time of signature, I have reviewed and agree with nursing past medical, surgical, social and family history unless otherwise noted. Please see nursing chart for further information. There is no relevant family history pertinent to the presenting complaint Exam Narrative: GENERAL: Well-appearing and in no acute distress. ENT: Mucous membranes pink and moist. NECK: Normal AROM. Supple. CHEST: No respiratory distress. Clear to auscultation. HEART: Regular rate and rhythm. ABDOMEN: Soft, nontender, nondistended, normal active bowel sounds. No CVA tenderness SKIN: Warm, dry, no rash. NEURO: No focal deficits. Alert and oriented x3. Gait steady. PSYCH: Normal affect. Course Course Emergency Course: Patient is aware of diagnosis, understands and agrees to treatment plan. Anticipatory guidance given. Patient agrees to follow-up as directed and is aware of reasons to seek care at the emergency department. Portions of this record may have been created with voice recognition software Level of Care: Express Care Visit Vital Signs Vital signs: Vital Signs Temperature 97.8 F 01/13/25 12:18 Pulse Rate 88 01/13/25 12:18 Respiratory Rate 16 01/13/25 12:18 Blood Pressure 127/83 01/13/25 12:18 Pulse Oximetry 100 01/13/25 12:18 Oxygen Delivery Room Air 01/13/25 12:18 Temperature 97.8 F 01/13/25 12:18 Pulse Rate 88 01/13/25 12:18 Respiratory Rate 16 01/13/25 12:18 Blood Pressure 127/83 01/13/25 12:18 Pulse Oximetry 100 01/13/25 12:18 Oxygen Delivery Room Air 01/13/25 12:18 Reviewed MDM - Female Genitourinary MDM Narrative Medical decision making narrative: Discussed physical exam findings. Will culture urine and send Macrobid at this time. No dip due to AZO. Advised supportive measures and signs/symptoms to go to the ER. Pt is appropriate for outpt treatment and f/u. Differential Diagnosis Differential diagnosis: Likely urinary tract infection, bacterial vaginosis, vaginitis and cystitis Discharge Plan Discharge Clinical Impression: Dysuria Patient Disposition: Home Condition: Stable Instructions: Antibiotic Form, Urinary Tract Infection in Women (ED) Additional Instructions: Take the antibiotic as prescribed The urine will be sent of for a culture to identify what type of bacteria is causing your infection. If the culture shows that the antibiotic will not get rid of your infection, you will be notified and a new antibiotic will be called in for you. Increase water intake Continue your hygiene practices you will need to follow up with your PCP or Obgyn, call to schedule an appointment. Go to the ER for any worsening symptoms or concerns Patient Language: Wallisian Prescriptions: New nitrofurantoin monohyd/m-cryst [Macrobid] 100 mg capsule 100 mg PO Q12H 5 Days Qty: 10 0RF Rx Instructions: must administer with a meal/food No Action levothyroxine 75 mcg tablet Follow-up/Referrals: Rick,Jayesh Jaocb MD [Primary Care Provider] - Time of Disposition: 12:36
== END 2025-01-13 12:39 | disposition home or self-care (01) ==
PROVIDERS: Emergency Provider Nurse Practitioner Family; PCP Internal Medicine
DX: R30.0 Dysuria (principal)
CPT/HCPCS: 87086; 99213; G0463

== ENCOUNTER 2025-04-04 18:23 | Emergency (ER) | payer BC, SELFPAY ==
--- OUTSIDE RECORDS SUMMARY | 2024-07-05 06:30 | XMS_ITS | Continuity of Care Document ---
Author Organization [facility] Address [address] [place] [address] [place] [id number] Phone Care Team Providers Care Specialty Sales Representative Name Role Phone Mikal Chowdhury PT Unavailable Unavailable Procedures Procedure Date Therapeutic Activities Neuromuscular Re-Ed Therapeutic Exercise Manual Therapy Therapeutic Activities Neuromuscular Re-Ed Therapeutic Exercise Manual Therapy Therapeutic Activities Neuromuscular Re-Ed Therapeutic Exercise Manual Therapy Therapeutic Activities Neuromuscular Re-Ed Therapeutic Exercise Manual Therapy Therapeutic Activities Neuromuscular Re-Ed Therapeutic Exercise Manual Therapy Hot or Cold Pack Therapeutic Activities Neuromuscular Re-Ed Therapeutic Exercise Manual Therapy Hot or Cold Pack Progress Note Therapeutic Activities Neuromuscular Re-Ed Therapeutic Exercise Manual Therapy Hot or Cold Pack Therapeutic Activities Neuromuscular Re-Ed Therapeutic Exercise Manual Therapy Hot or Cold Pack Therapeutic Activities Neuromuscular Re-Ed Therapeutic Exercise Manual Therapy Hot or Cold Pack Therapeutic Activities Neuromuscular Re-Ed Therapeutic Exercise Manual Therapy Hot or Cold Pack Therapeutic Activities Neuromuscular Re-Ed Therapeutic Exercise Manual Therapy Hot or Cold Pack PT Evaluation Moderate Complexity Therapeutic Activities Neuromuscular Re-Ed Manual Therapy Therapeutic Activities Neuromuscular Re-Ed Therapeutic Exercise Manual Therapy Therapeutic Activities Therapeutic Exercise Neuromuscular Re-Ed Manual Therapy Therapeutic Activities Neuromuscular Re-Ed Therapeutic Exercise Manual Therapy Therapeutic Activities Neuromuscular Re-Ed Therapeutic Exercise Manual Therapy Therapeutic Activities Neuromuscular Re-Ed Therapeutic Exercise Manual Therapy Therapeutic Activities Neuromuscular Re-Ed Therapeutic Exercise Manual Therapy PT Evaluation Moderate Complexity Therapeutic Activities Neuromuscular Re-Ed Therapeutic Exercise Manual Therapy Advance Directives Directive Yes / No Effective Date File Name No Information Encounters Encounter Description Practice Location Reason(s) For Visit Diagnoses Date Provider Providers Copied on Encounter [facility] [facility], [place], [place], [id number], [place] tel:[phone] [place] No Information Luciana Ren. . Referring Provider: Delmar Rasheed, [address] [place] [address], [place], [address]. tel:[phone] [place] [address], [place], [place], [id number], tel:[phone] [place] No Information Liudmila Howard. . Referring Provider: Delmar Rasheed, [address] [place] [address], [place], [address]. tel:[phone] [place] [address], [address] [place] [address], [place], [place], [id number], [place] tel:[phone] [place] No Information Hisky Mikal. . Referring Provider: Delmar Rasheed, [address] [place] [address], [place], [address]. tel:[phone] [place] [address], [place], [place], [id number], [place] tel:[phone] [place] No Information Hisky Mikal. . Referring Provider: Delmar Rasheed, [address] [place] [address], [place], [address]. tel:[phone] [place] [address] [place] [address], [place], [place], [id number], [place] tel:[phone] [place] No Information Hisky Mikal. . Referring Provider: Delmar Rasheed, [address] [place] [address], [place], [address]. tel:[phone] [place] [address] [place] [address], [place], [place], [id number], [place] tel:[phone] [place] No Information Hisky Mikal. . Referring Provider: Delmar Rasheed, [address] [place] [address], [place], [address]. tel:[phone] [facility], [address] [place] [address], [place], [place], [id number], [place] tel:[phone] [place] No Information Luciana Ren. . Referring Provider: Delmar Rasheed, [address] [place] [address], [place], [address]. tel:[phone] [place] [address], [id number], tel:[phone] [place] No Information Phi Miranda. . Referring Provider: Delmar Rasheed, [address] [place] [address], [place], [address]. tel:[phone], [id number], [place] tel:[phone] [place] No Information Luciana Ren. . Referring Provider: Delmar Rasheed, [address] [place] [address], [address]. tel:[phone] [place] [address], [id number], tel:[phone] [place] No Information Luciana Ren. . Referring Provider: Delmar Rasheed, [address] [place] [address], [address]. tel:[phone], [id number], tel:[phone] [place] No Information Camden Eastman. [id number] [place] [address], [address], [place], [facility], . tel:[phone] Referring Provider: Delmar Rasheed, [address] [place] [address], [address]. tel:[phone], [id number], tel:[phone] [place] No Information Luciana Ren. . Referring Provider: Delmar Rasheed [address] [place] [address], [address]. tel:[phone] [facility], [address], [id number], tel:[phone] [place] No Information Hisky Mikal. . [facility], [address], [id number], tel:[phone] [place] No Information Hisky Mikal. . [facility], [address], [id number], tel:[phone] [place] No Information Hisky Mikal. . [facility], [address], [id number], tel:[phone] [place] No Information Hisky Mikal. . [facility], [address], [id number], tel:[phone] [place] No Information Hisky Mikal. . [facility], [address], [id number], tel:[phone] [place] No Information Hisky Mikal. . [facility], [address], [id number], tel:[phone] [place] No Information Hisky Mikal. . Family History Family Member Type Diagnosis Age At Onset No Information Payers Payer name Insurance type Covered constitution party ID Luchoa tang(s) Lien-LOP LI 00 Social History Type Description Quantity Date Captured Comments Sex Female Smoking Status No Information Chief Complaint And Reason For Visit No Information Reason For Referral Reason For Referral No Information History Of Present Illness Encounter Date Complaint History Of Prese nt Illness No Information Functional Status Date Functional Assessmen t No Information Instructions Date Instruction Additional Infor mation No Information Assessments Type Assessment Date No Information Patient Care Teams Name Effective Dates (start - stop) Status Members No Information
--- OUTSIDE RECORDS SUMMARY | 2025-04-04 18:28 | XMS_ITS | Clinical Summary ---
[facility] Organization [facility] Address [address] [place] [address] Care Team Providers Care Picking Machine Operator Name Role Phone Jayesh Cabrera MD Primary Care Provider [phone] Allergies No known active allergies Medications Symbicort [...] hours as needed for Pain, Mild. Active tirzepatide, weight loss, (Zepbound) 10 mg/0.5 [...] in Packet Take by mouth daily. Active levothyroxine 75 mcg tablet TAKE 1 TABLET(75 MCG) BY MOUTH DAILY IN THE MORNING 90 Tablet 1 02/13/20 25 Active Active Problems Patient Care Coordination No te Formatting of this note migh t be different from the original. Prev 09/02/23 Problem Noted Date Diagnosed Date Other asthma 12/29/2021 Allergic sinusitis 02/04/2021 Encounters Date Type Department Care Team Description 04/03/2025 External Device Data [facility] Provider, Abstract 03/20/2025 External Device Data [facility] Provider, Abstract 03/06/2025 External Device Data [facility] Provider, Abstract 02/13/2025 External Device Data [facility] Provider, Abstract 02/12/[address] [place] [address] Jayesh Cabrera MD 01/29/2025 External Device Data [facility] Provider, Abstract 01/29/[address] [place] [address] Jayesh Cabrera MD 01/22/2025 External Device Data [facility] Provider, Abstract 01/22/2025 External Device Data [facility] Provider, Abstract 01/15/2025 External Device Data [facility] Provider, Abstract from Last 3 Months Immunizations Immunization Administration [...] PNEUM OCOCCAL CONJUGATE VACCINE 20-VALENT (PCV20), POLYSACCHARIDE [id number] CONJUGATE, ADJUVANT 0.5 ML (PF) IM 12/28/2022 [...] Description 04/18/2025 10:20 AM CDT Office Visit [facility] [address] [place] [address] Jayesh Cabrera MD [address] [place] [id number] Health Maintenance Due Date Last Done Comments CHLAMYDIA SCREENING (ANNUAL) 11-24 YEARS 2013 HPV/Cotest (21-29) 2023 Preventative Visit- Commercial 08/01/2024 0 09/02/2023, 12/28/2022, 12/29/2021, Additional history exists INFLUENZA VACCINE (#1) 2025 9, 06/20/2018, 07/13/2017, Additional history exists CERVICAL CANCER SCREENING 07/08/2025 PAP SMEAR 07/08/2025 07/08/2022 (Prev iously completed) DTAP/TDAP/TD VACCINES (8 - T d or Tdap) 03/02/2034 03/02/2024, 03/14/2014, 06/02/2006, Additional history exists HEPATITIS B VACCINES Completed 2002, 2002, 2002, Additional history exists HPV VACCINES Completed 08/30/2018, 04/02, 01/18/2017, Additional history exists Medical Devices Implanted Type Area Freight Conductor Device Identifier Shelf Expiration Date Model / Serial / Lot [employer] Department Chair Ligaclip Endo Rotate Multi Clip 10mm [id number] - [id number] Implanted:Qty : 1 on 11/10/2024 by Wallace Sellers MD at [facility] Clip N/A: Abdomen [employer] [id number] 08/31/2029 [id number] / / [id number] [place] [address] [facility] BLUE PREFERRED RX [employer] Commercial Advance Directives For more information, please contact: [phone] * Full Code (Latest Code Status on File) Date Activated Date Inactivated Comments 11/10/2024 10:44 AM 11/10/2024 3:02 PM * Full Code Date Activated Date Inactivated Comments 11/10/2024 7:36 AM 11/10/2024 10:44 AM Care Teams Picking Machine Operator Relationship Specialty Start Date End Date Jayesh Cabrera MD PCP - General Internal Medicine 01/28/21
--- OUTSIDE RECORDS SUMMARY | 2025-04-04 18:31 | XMS_ITS | Clinical Summary ---
Author Organization [facility] [address] Address [address] [place] [address] Phone Care Team Providers Care Payer Specialist Name Role Phone Jayesh Cabrera MD Primary [...] prn. 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 Gender Identity Not on file Sexual Orientation Not on file Obstetrics History Last Filed Vital Signs Vital Sign Reading Time Taken Comments Blood Pressure 109/73 09/28/2024 11:30 AM LEHR TENDER Pulse 51 09/28/2024 11:30 AM LEHR TENDER Temperature 36.9 C (98.4 F) 09/28/2024 6:04 AM LEHR TENDER Respiratory Rate 16 09/28/2024 5:55 AM LEHR TENDER Oxygen Saturation 94% 09/28/2024 11: 30 AM LEHR TENDER Inhaled Oxygen Concentration - - Weight 70.3 kg (154 lb 15.7 oz) 09/28/2024 5:55 AM LEHR TENDER Height 162.6 cm (5' 4) 09/28/2024 5:38 AM LEHR TENDER Body Mass Index 26.6 09/28/2024 5:38 AM LEHR TENDER Plan of Treatment Health Maintenance Due Date Last Done Comments Cervical Cancer Screening 2002 Depression Screening 2002 Hepatitis C Screening 2002 Pneumococcal vaccine <65 (1 of 1 - PPSV23, PCV20, or PCV21) 2008 06/03/2003, 03/06/2003 Meningococcal B Vaccine (1 o f 2 - Standard) 2018 Regular Well Visit/Exam 18-64 2020 Influenza Vaccine (#1) 2025 9, 06/20/2018, 07/13/2017, Additional history exists DTaP/Tdap/Td Vaccine (8 - Td or Tdap) 03/02/2034 03/02/2024, 03/14/2014, 06/02/2006, Additional history exists Hepatitis B Screening Completed 2002 , 2002, 2002 Varicella Vaccines Completed 05/09/2014, 06/03/2003 HPV Vaccines Completed 08/30/2018, 04/02, 01/18/2017 Insurance CHOICE PRF PPO [facility] CHOICE PRF PPO [place] Care Teams Payer Specialist Relationship Specialty Start Date End Date Jayesh Cabrera MD PCP - General Internal Medicine 11/17/23
[2025-04-04 18:43] VITALS: BP 108/68; PULSE 80; RESP 18; TEMP 37.1; O2SAT 100
--- NOTE | 2025-04-04 19:08 | ED_ITS ---
HPI - URI/Sore Throat General Chief Complaint: Upper Respiratory Infection Stated Complaint: Sore Throat/Fever Time Seen by Provider: 04/04/25 19:09 Source: patient, RN notes reviewed and old records reviewed Mode of arrival: ambulatory Limitations: no limitations History of Present Illness HPI Narrative: 24-year-old female presents to the [facility] with 1 day history of a sore throat and reported fevers. Symptoms started last night. Has taken a dose of NyQuil and a dose of DayQuil Treatments prior to arrival: cold medicine Related Data Home Medications ?Medication ?Instructions ?Recorded ?Confirmed ?Last Taken ?Type levothyroxine 75 mcg tablet mcg 08/26/24 Unknown Hist ory albuterol sulfate 90 mcg/actuation inhalation 04/04/25 Unknown History aerosol inhaler budesonide-formoterol HFA 160 inhalation 04/04/25 Unk nown History mcg-4.5 mcg/actuation aerosol inhaler (Symbicort) Allergies Allergy/AdvReac Type Severity Reaction Status Date / Time No Known Allergies Allergy Unverified 04/04/25 18:26 Review of Systems Review of Systems: All systems reviewed & are unremarkable except as noted in HPI and below Constitutional: Constitutional: Reports as per HPI and Reports fever(s) ENT: Reports as per HPI and Reports sore throat Cardiovascular: Cardiovascular: Reports no additional cardiovascular complaints, Denies chest pain and Denies dyspnea Respiratory: Respiratory: Reports no additional respiratory complaints, Denies chest congestion, Denies cough and Denies dyspnea Musculoskeletal: Musculoskeletal: Reports no additional musculoskeletal complaints Integumentary/Breasts: Skin/Breast: Reports system reviewed and no additional complaints, except as docu PMFSH Past Medical History Medical History Broken collarbone Bronchitis Surgical History Surgical History History of tonsillectomy Social History Social History Smoking status: Never smoker Alcohol intake: current Alcohol use details: social Substance use type: does not use Living arrangements: with family Occupation/Education: student Gender identity (if verbalized by the patient): Female Comments At the time of my signature, I reviewed and agree with the nursing past medical, surgical, social, and family history. There is no relevant family history pertinent to the patient complaint. Exam Const: General: cooperative, healthy appearing, comfortable, no acute distress, well developed, alert and well nourished Nutritional Appearance: well nourished Orientation/consciousness: patient oriented x3 Limitations: no limitations HENMT: Head: normal to inspection Ears: hearing grossly normal bilaterally, external ears normal, TM's normal bilaterally, EAC's normal, mastoids normal and no periauricular adenopathy Throat: posterior oropharynx normal, tonsils normal, uvula midline, postnasal drainage and no uvular edema Eyes: General: appearance normal, both eyes and all related structures Alignment and Position: alignment normal Neck: Neck: normal visual inspection, full ROM, no lymphadenopathy and no meningeal signs Chest: Chest palpation & inspection: normal inspection of the chest Resp: Effort & Inspection: normal respiratory effort and able to speak in complete sentences Auscultation: clear to auscultation bilaterally, no crackles, no rales, no rhonchi and no wheezes Cardio: Rate: regular rate Skin: General skin exam: normal color and no rashes or lesions noted Neuro: General: patient oriented x3, gait normal, moves all extremities and no meningeal signs Cognition (Neuro): normal cognition Speech: normal speech Gait exam (Neuro): Normal gait present Extrem: General: normal to inspection, full ROM, capillary refill normal and normal gait Psych: Appearance: grossly normal and well kempt Mental Status: mental status grossly normal Speech and movement: Normal speech and movement present and Clear speech present Affect: normal affect Attitude: cooperative Course Course Level of Care: Express Care Visit Vital Signs Vital signs: Vital Signs Temperature 98.7 F 04/04/25 18:43 Pulse Rate 80 04/04/25 18:43 Respiratory Rate 18 04/04/25 18:43 Blood Pressure 108/68 04/04/25 18:43 Pulse Oximetry 100 04/04/25 18:43 Oxygen Delivery Room Air 04/04/25 18:43 Temperature 98.7 F 04/04/25 18:43 Pulse Rate 80 04/04/25 18:43 Respiratory Rate 18 04/04/25 18:43 Blood Pressure 108/68 04/04/25 18:43 Pulse Oximetry 100 04/04/25 18:43 Oxygen Delivery Room Air 04/04/25 18:43 Reviewed MDM - URI/Sore Throat MDM Narrative Medical decision making narrative: Patient sitting in exam. Patient with 1 day history sore throat and feeling fever. Patient is flu, COVID, strep were negative Patient appropriate for outpatient treatment of viral URI, viral pharyngitis Discharge instructions reviewed with patient, as well as provided in writing per nursing staff. The instructions also include specific and strict return/GO TO THE ER as well as f/u information. All questions have been answered, and the patient deny any further questions with discharge and discharge plan. Some parts of this dictation were generated by voice recognition software and may contain typographical and/or grammatical inaccuracies. Differential Diagnosis Differential diagnosis: Likely upper respiratory infection, otitis media, sinusitis, viral infection, bronchitis, influenza and pharyngitis Lab Data Labs: Lab Results 04/04/25 Range/Units 19:14 POC Influenza A Ag Negative (Negative) POC Influenza B Ag Negative (Negative) POC SARS CoV-2 Ag Negative (Negative) POC Grp A Strep Screen Negative (Negative) Reviewed Critical Care Time Critical Care Time Critical Care Time: No Discharge Plan Discharge Clinical Impression: Acute viral pharyngitis Patient Disposition: Home Condition: Stable Instructions: Antibiotic Form, Pharyngitis (ED) Additional Instructions: Your rapid strep swab was negative today at [facility]. A throat culture will be sent to the laboratory for further testing. If the test is positive, you will receive a phone call within 48 hours and an appropriate antibiotic will be initiated at that time. Your rapid COVID test were negative Your rapid flu test was negative Your symptoms are likely due to a viral illness, which is not treated with antibiotics. Typically viral infections last 7-10 days, can linger for couple of weeks. It is very important to treat your symptoms. Drink plenty of water, Gatorade, Pedialyte, ice pops or Jell-O. -Alternate Tylenol and Motrin per package directions for fever or pain. You can alternate every 4 hours -Antihistamine medication such as Zyrtec/Claritin/Francia during the day can help improve symptoms. -doing daily nasal irrigations can help relieve pressure your sinuses. Things like a Neti pot -Use Flonase twice a day for 5 days then daily to help reduce the inflammation and dry up your sinuses. -You can also use Mucinex. Be sure to drink plenty of water with this medication at least 8 ounces with every dose and it is important to drink 8 to 10 glasses of water per day. Water is a natural decongestant -Eat and drink things that are easy to swallow, like tea or soup, or popsicles. -Oral rinses such as: Salt water gargles and/or may use topical anesthetic (eg. Chloraseptic spray) or lozenges to relieve dryness or throat pain). -Frequent hand washing or hand director cloud transformation is one of the best ways to prevent spre ad of infection. -Using a vaporizer or humidifier at night will also help thin secretions and help with coughing up phlegm. -Follow up with primary care provider in 7-10 days if condition is not improving - For new or worsening symptoms go directly to the nearest ER Patient Language: Peruvian Prescriptions: No Action levothyroxine 75 mcg tablet albuterol sulfate 90 mcg/actuation HFA aerosol inhaler INHALATION budesonide-formoterol [Symbicort] 160-4.5 mcg/actuation HFA aerosol inhaler INHALATION Follow-up/Referrals: Rick,Jayesh Jacob MD [Primary Care Provider] - 2 Weeks Stand Alone Forms: Work/School Release IP Time of Disposition: 19:14
[2025-04-04 19:16] LABS: EDCOVIDSCREEN Negative (Negative); EDINFLUASCREEN Negative (Negative); EDINFLUBSCREEN Negative (Negative); EDSTREPNEGPOS1 Negative (Negative)
== END 2025-04-04 19:20 | disposition home or self-care (01) ==
PROVIDERS: Emergency Provider Nurse Practitioner; PCP Internal Medicine
DX: J02.8 Acute pharyngitis due to other specified organisms (principal); Z20.822 Contact with and (suspected) exposure to COVID-19
CPT/HCPCS: 87081; 87426; 87804; 87880; 99213; G0463